=== PATIENT | female | born 1985 | race Caucasian/White ===

== ENCOUNTER → 2016-10-30 | Outpatient (CLI) | payer MEDICAID ==
--- NOTE | 2016-10-30 16:57 | US ---
Ultrasound Pelvis Complete (Transabdominal and Endovaginal) Including Duplex/Doppler Imaging History: Right ovarian cyst, N83.201, previous study reported a left ovarian complex cyst measuring 4 x 2.3 x 2.6 cm. Comparison: April 2016. Technique: Transabdominal and endovaginal ultrasound images were obtained. Endovaginal images obtain ed for better evaluation of the uterine myometrium and adnexa. Duplex/Doppler imaging of adnexa. Findings: Uterus measures 7.3 x 3.5 x 4.8 cm. Retroverted uterus. Uterus appears bicornuate on coron al series. Endometrial thickness is 3 mm. No definite uterine leiomyomata. Right ovary measures 2.8 x 2 x 1.4 cm. Left ovary measures 4.1 x 3.3 x 3.5 cm. Left ovarian complex c yst with homogeneous hypoechoic internal echoes measuring 3.2 x 2.7 x 2.2 cm, previously measuring 4 x 2.6 x 2.3 cm with similar characteristics, possibly representing endometrioma or less likely hemorr hagic cyst. No significant free fluid in the pelvis. Color Doppler flow to both ovaries without torsi on. Impression: 1. Interval decrease in size of left ovarian complex cystic lesion, currently measuring 3.2 x 2.7 x 2 .2 cm, probably representing an endometrioma versus less likely hemorrhagic cyst. 2. No ovarian torsion or significant ascites. 3. Bicornuate retroverted uterus.
== END ==
LOC: BRMIMAGING 13:22
DX: N83.201 Unspecified ovarian cyst, right side (principal); N83.202 Unspecified ovarian cyst, left side
CPT/HCPCS: 76856-PO